=== PATIENT | male | born 1990 | race Caucasian/White ===

== ENCOUNTER 2016-07-19 22:56 | Emergency (ER) | payer OTHER ==
--- NOTE | 2016-07-19 23:16 | ED ---
Eye Problem HPI - General Stated complaint: IHS/Eye exposure Time Seen by Provider: 07/19/16 23:03 Source: RN notes reviewed, old records reviewed - History of Present Illness Initial comments: Patient is a 26-year-old male chief complaint of possible blood and body fluid exposure in the eye. Patient reports that he works in [employer] and was cleaning up the sink. Patient reports that he was cleaning the sink and was cleaning with ionized water and when he poured the water in the sink it splashed up in his eye. Patient reports that multiple body fluids including blood or drain down the same sink as the water to flush his eye. Patient states that he does wear contacts. Patient reports that he is very poor vision without wearing contacts. She reports that initially try to flush his eye. He states that he is unsure of how many people's blood could be in the sink. He reports that he did receive 2 out of the 3 hepatitis B vaccinations. Patient denies any recent fever, chills, shortness of breath, chest pain, back pain, abdominal pain, nausea vomiting, numbness or tingling, dysuria or hematuria, constipation or diarrhea, headaches or visual changes, or any other current symptoms - Related Data Home Medications Medication Instructions Recorded Confirmed No Known Home Medications [No 07/19/16 07/19/16 Known Home Medications] Allergies Allergy/AdvReac Type Severity Reaction Status Date / Time No Known Allergies Allergy Verified 07/19/16 23:13 Review of Systems ROS Statement: Those systems with pertinent positive or pertinent negative responses have been documented in the HPI. ROS Other: All systems not noted in ROS Statement are negative. General Exam - General Exam Comments Initial Comments: Well-appearing 26-year-old male. No acute distress. General appearance: alert, in no apparent distress Head exam: Present: atraumatic, normocephalic, normal inspection Eye exam: Present: normal appearance, PERRL, EOMI. Absent: scleral icterus, conjunctival injection, periorbital swelling ENT exam: Present: normal exam, mucous membranes moist Neck exam: Present: normal inspection. Absent: tenderness, meningismus, lymphadenopathy Respiratory exam: Present: normal lung sounds bilaterally. Absent: respiratory distress, wheezes, rales, rhonchi, stridor Cardiovascular Exam: Present: regular rate, normal rhythm, normal heart sounds. Absent: systolic murmur, diastolic murmur, rubs, gallop, clicks GI/Abdominal exam: Present: soft, normal bowel sounds. Absent: distended, tenderness, guarding, rebound, rigid Extremities exam: Present: normal inspection, full ROM, normal capillary refill. Absent: tenderness, pedal edema, joint swelling, calf tenderness Back exam: Present: normal inspection Neurological exam: Present: alert, oriented X3, CN II-XII intact Psychiatric exam: Present: normal affect, normal mood Skin exam: Present: warm, dry, intact, normal color. Absent: rash Course Vital Signs 07/19/16 07/20/16 23:11 00:09 Temperature 97.9 F 97.8 F Pulse Rate 92 80 Respiratory 20 18 Rate Blood Pressure 155/70 144/65 O2 Sat by Pulse 98 97 Oximetry Medical Decision Making - Medical Decision Making Patient is a 26-year-old male presents emergency room with possible blood borne exposure in the eye. Patient states he was cleaning a sink with water and the water splashed up and it. Patient states multiple sources of blood pouring down the same sink. Patient is concerned that he may have contracted a blood borne illness. Patient reports he has received 2 of the 3 hepatitis B vaccinations. Laboratory drawn on the patient will let him know his results. I discussed the need to repeat the lab work in 6 weeks to be still concerned. Patient wanted to discuss prophylactics. I don't think a discussion with the patient prophylaxis for high blood exposure is not indicated. Patient's contacts are removed and placed in normal saline. Patient was given a bilateral Josué lens. Patient tolerated the eye flushing well. I discussed that he needs to discuss this with his primary care provider if any further questions. Patient understands the treatment plan will comply. Disposition Clinical Impression: Chemical exposure of eye Disposition: HOME SELF-CARE Condition: Good Instructions: Postexposure Prophylaxis (ED), Body Substance Exposure (ED) Additional Instructions: Patient advised to follow-up with primary care provider and repeat lab work in 6 -8 weeks. Patient will receive a call from us if any of his lab work does become positive. Referrals: Nanci Hickman MD [Primary Care Provider] - 1-2 days Time of Disposition: 23:59
[2016-07-20 00:12] VITALS: BP 144/65; PULSE 80; RESP 18; TEMP 97.8
== END 2016-07-20 00:12 | disposition home or self-care (01) ==
LOC: EC 22:56
DX: Z77.098 Contact with and (suspected) exposure to other hazardous, chiefly nonmedicinal, chemicals (principal)
CPT/HCPCS: 99283

== ENCOUNTER → 2021-12-28 | Outpatient (CLI) | payer OTHER ==
[2021-12-28 13:15] LABS: Appearance,Urine Clear (Clear); Bilirubin,Urine Negative (Negative); Blood,Urine Negative (Negative); Color,Urine Light Yellow; Glucose,Urine (UA) Negative (Negative); Ketones,Urine Negative (Negative); Leukocyte Esterase,Urine Negative (Negative); Nitrite,Urine Negative (Negative); PH, Urine 6.5 (5.0-8.0); Protein,Urine Negative (Negative); Specific Gravity,Urine 1.006 (1.001-1.035); Urobilinogen,Urine <2.0 mg/dL (<2.0)
[2021-12-28 18:21] LABS: HCT 47.3 % (39.6-50.0); HGB 15.6 g/dL (13.0-17.0); MCH 29.9 pg (27.0-32.0); MCV 90.8 fL (80.0-97.0); Mean Platelet Volume 9.2 fL (9.5-12.2); NRBC Per 100 WBC 0 /100 WBCS (0.0-0.0); Platelet Count 336 X 10*3/uL (140-440); RBC 5.21 X 10*6/uL (4.40-5.60); RDW 11.7 % (11.5-14.5); WBC 8.02 X 10*3/uL (4.50-10.00)
[2021-12-28 18:53] LABS: ALT 23 U/L (10-49); AST 20 U/L (14-35); African American GFR (CKD) 106.6 (60.0-200.0); Albumin 4.7 g/dL (3.8-4.9); Albumin/Globulin Ratio 1.82 (1.60-3.17); Alkaline Phosphatase 89 U/L (41-126); BUN/Creat Ratio 8.07 Ratio (12.00-20.00); Blood Urea Nitrogen 8.6 mg/dL (9.0-27.0); Calcium 9.8 mg/dL (8.7-10.3); Carbon Dioxide 27.4 mmol/L (20.0-27.5); Chloride 99 mmol/L (96-109); Chol/HDL Ratio 4.33 Ratio; Globulin 2.6 g/dL (1.6-3.3); Glucose 88 mg/dL (70-110); LDL Cholesterol,Calculated 144.3 mg/dL (0.0-131.0); Potassium 4.1 mmol/L (3.5-5.5); Sodium 139 mmol/L (135-145); Total Protein 7.3 g/dL (6.2-8.2)
== END | disposition home or self-care (01) ==
LOC: LABWHC1 11:04
PROVIDERS: ATTEND Internal Medicine
DX: Z00.00 Encounter for general adult medical examination without abnormal findings (principal); N20.0 Calculus of kidney
CPT/HCPCS: 36415; 80053; 80061; 81003; 85027

== ENCOUNTER → 2022-01-01 | Outpatient (CLI) | payer OTHER ==
--- NOTE | 2022-01-01 16:18 | CT ---
EXAMINATION TYPE: CT abdomen pelvis wo con CT DLP: 768.9 mGycm, Automated exposure control for dose reduction was used. DATE OF EXAM: 01/01/2022 4:03 PM COMPARISON: CT abdomen pelvis most recent from CLINICAL INDICATION:Male, 31 years old with history of N20.0 calculus OF KIDNEY; Rt side flank pain TECHNIQUE: Axial CT of the abdomen and pelvis. Sagittal and coronal reformats were created on a [employer] workstation. Contrast used: None Oral contrast used: without Oral Contrast FINDINGS: LOWER CHEST: Unremarkable ABDOMEN LIVER: Unremarkable GALLBLADDER AND BILE DUCTS: Unremarkable. PANCREAS: Unremarkable. SPLEEN: Unremarkable. ADRENAL GLANDS: Unremarkable. KIDNEYS AND URETERS: No evidence of hydronephrosis or renal calculus. The ureters are unremarkable. PELVIS BLADDER: Unremarkable REPRODUCTIVE: Unremarkable. ABDOMEN & PELVIS STOMACH AND BOWEL: No evidence of bowel obstruction. Few scattered clonic diverticula are present. PERITONEUM: No evidence of pneumoperitoneum or free fluid. VASCULATURE: No evidence of aortic aneurysm. MUSCULOSKELETAL: No acute osseous abnormalities, mild degeneration changes of the spine. LYMPH NODES: No gross evidence for lymphadenopathy. SOFT TISSUE/ABDOMINAL WALL: Unremarkable IMPRESSION: 1. No evidence of renal calculus or obstructive uropathy. 2. Colonic diverticulosis.
== END | disposition home or self-care (01) ==
LOC: RADCTMAIN 15:44
PROVIDERS: ATTEND Internal Medicine
DX: N20.0 Calculus of kidney (principal)
CPT/HCPCS: 74176